=== PATIENT | female | born 1965 | race Caucasian/White ===

== ENCOUNTER → 2024-02-01 08:26 | Outpatient (REF) | payer BC, SELFPAY | LOC: WDC 08:26 | PROVIDERS: ATTENDING PHYSICIAN Obstetrics & Gynecology Gynecology; FAMILY PHYSICIAN Family Medicine | DX: Z12.31 Encounter for screening mammogram for malignant neoplasm of breast (principal) | CPT/HCPCS: 77063; 77067 ==

== ENCOUNTER → 2024-08-18 08:21 | Outpatient (REF) | payer BC, SELFPAY ==
[2024-08-18 09:18] LABS: % Basophils 0.9 % (0-2); % Eosinophils 1.8 % (0-6); % Immature Granulocytes 0.2 % (0-0.5); % Lymphocytes 32.5 % (20.5-51.1); % Monocytes 8.6 % (1.7-9.3); Absolute Eosinophils 0.1 10^3/uL (0-0.7); Absolute Lymphocytes 1.5 10^3/uL (1.2-3.4); Absolute Monocytes 0.4 10^3/uL (0.1-0.6); Absolute Neutrophils 2.6 10^3/uL (1.4-6.5); Hematocrit 39.7 % (37.0-47.0); Hemoglobin 13.4 g/dL (12.0-16.0); Mean Corp Hgb Conc. 33.8 g/dL (33.0-37.0); Mean Corpuscular Hgb 29.1 pg (27.0-31.0); Mean Corpuscular Volume 86.1 fL (81.0-99.0); Mean Platelet Volume 9.6 fL (7.4-10.4); Nucleated Red Blood Cells % 0 %; Platelet Count 269 10^3/uL (130-400); Red Blood Cell Count 4.61 10^6/uL (4.20-5.40); Red Cell Dist. Width 12.9 % (11.5-14.5); White Blood Cell Count 4.6 10^3/uL (4.8-10.8)
[2024-08-18 10:51] LABS: ALT (SGPT) 20 U/L (0-35); AST (SGOT) 25 U/L (14-36); Albumin 4.5 g/dl (3.5-5.0); Alkaline Phosphatase 56 U/L (38-126); Blood Urea Nitrogen 15 mg/dl (7-17); Calcium 9.4 mg/dl (8.4-10.2); Carbon Dioxide 26 mmol/L (22-30); Chloride 103 mmol/L (98-107); Glucose 89 mg/dl (70-99); HDL Cholesterol 99 mg/dl; LDL Cholesterol, Calculated 141 mg/dl; Potassium 4.3 mmol/L (3.5-5.1); Sodium 142 mmol/L (135-145); Total Bilirubin 0.7 mg/dl (0.2-1.3); Total Cholesterol 248 mg/dl (50-199); Total Protein 7.1 g/dl (6.3-8.2); Triglyceride 41 mg/dl (10-149); Very Low Density Lipoprotein 8 mg/dl (0-30); eGFR > 60.00
[2024-08-18 11:18] LABS: TSH 1.76 uIU/ml (0.47-4.68)
== END ==
LOC: REG 08:21
PROVIDERS: ATTENDING PHYSICIAN Family Medicine
DX: E78.2 Mixed hyperlipidemia (principal); Z00.00 Encounter for general adult medical examination without abnormal findings
CPT/HCPCS: 36415; 80053; 80061; 84443; 85025

== ENCOUNTER → 2025-02-06 08:53 | Outpatient (REF) | payer BC, SELFPAY | LOC: WDC 08:53 | PROVIDERS: ATTENDING PHYSICIAN Obstetrics & Gynecology Gynecology | DX: Z12.31 Encounter for screening mammogram for malignant neoplasm of breast (principal) | CPT/HCPCS: 77063; 77067 ==

== ENCOUNTER → 2025-07-28 09:11 | Outpatient (REF) | payer BC, SELFPAY ==
[2025-07-28 09:49] LABS: Hematocrit 41.2 % (37.0-47.0); Hemoglobin 13.7 g/dL (12.0-16.0); Mean Corp Hgb Conc. 33.3 g/dL (33.0-37.0); Mean Corpuscular Volume 88.0 fL (81.0-99.0); Nucleated Red Blood Cells % 0 %; Platelet Count 264 10^3/uL (130-400); Red Cell Dist. Width 12.5 % (11.5-14.5)
[2025-07-28 10:17] LABS: ALT (SGPT) 18 U/L (0-35); AST (SGOT) 21 U/L (14-36); Albumin 4.5 g/dl (3.5-5.0); Alkaline Phosphatase 50 U/L (38-126); Blood Urea Nitrogen 16 mg/dl (7-17); Calcium 9.8 mg/dl (8.4-10.2); Carbon Dioxide 30 mmol/L (22-30); Chloride 105 mmol/L (98-107); Glucose 94 mg/dl (70-99); Potassium 4.3 mmol/L (3.5-5.1); Sodium 139 mmol/L (135-145); Total Protein 7.2 g/dl (6.3-8.2); Very Low Density Lipoprotein 9 mg/dl (0-30); eGFR > 60.00
[2025-07-28 10:27] LABS: HDL Cholesterol 110 mg/dl; LDL Cholesterol, Calculated 136 mg/dl
[2025-07-28 10:45] LABS: TSH 1.44 uIU/ml (0.47-4.68)
[2025-07-28 14:20] LABS: Glycohemoglobin (HgbA1c) 5.3 % (4.0-5.6)
== END ==
LOC: REG 09:11
PROVIDERS: ATTENDING PHYSICIAN Physician Assistant Medical
DX: Z00.00 Encounter for general adult medical examination without abnormal findings (principal); E78.2 Mixed hyperlipidemia
CPT/HCPCS: 36415; 80053; 80061; 83036; 84443; 85025

== ENCOUNTER 2025-10-19 22:36 | Inpatient (IN) | payer BC, SELFPAY ==
[2025-10-19] VITALS (14 sets, daily range): BP systolic 90–121; BP diastolic 61–80; BMI 23.7
[2025-10-19 12:23] LABS: Hematocrit 37.1 % (37.0-47.0); Hemoglobin 12.6 g/dL (12.0-16.0); Mean Corp Hgb Conc. 34.0 g/dL (33.0-37.0); Mean Corpuscular Volume 86.9 fL (81.0-99.0); Nucleated Red Blood Cells % 0 %; Platelet Count 248 10^3/uL (130-400); Red Cell Dist. Width 12.5 % (11.5-14.5)
[2025-10-19 12:40] LABS: D-Dimer 1.66 ug/mlFEU (0.00-0.50)
[2025-10-19 12:42] LABS: ALT (SGPT) 14 U/L (0-35); AST (SGOT) 17 U/L (14-36); Albumin 4.1 g/dl (3.5-5.0); Alkaline Phosphatase 54 U/L (38-126); Blood Urea Nitrogen 20 mg/dl (7-17); Calcium 9.1 mg/dl (8.4-10.2); Carbon Dioxide 29 mmol/L (22-30); Chloride 103 mmol/L (98-107); Glucose 110 mg/dl (70-99); Potassium 3.9 mmol/L (3.5-5.1); Sodium 138 mmol/L (135-145); Total Protein 6.8 g/dl (6.3-8.2); eGFR > 60.00
[2025-10-19 12:51] LABS: Troponin I < 0.012 ng/ml
--- NOTE | 2025-10-19 14:50 | ED.GENMED ---
History of Present Illness
<Kapil Lopez PA-C - Last Filed: 10/20/25 22:57>
General
Chief Complaint: Breathing Problem
Time Seen by Provider: 10/19/25 13:09
History of Present Illness
History of Present Illness:
60-year-old female presents to the emergency department for evaluation of left-sided chest pain and shortness of breath began 3 days ago and worsening. Pain is pleuritic in nature but does not radiate. Denies any trauma to the area. States that
he was walking across the parking lot because of significant shortness of breath. No associated fever, chills, sweats, coughing, nausea, vomiting, or diarrhea. Does not take any exogenous hormones and denies any recent prolonged immobilization.
No recent illnesses
Past History
<Kapil Lopez PA-C - Last Filed: 10/20/25 22:57>
Past History
ED Past Medical History: Other (Migraines, previous craniotomy for benign*eye trauma in 1978. Recent bilateral knee replacements)
ED Past Surgical History: Other (History of brain tumor)
Social History
Tobacco: Non-smoker
Alcohol: None
Personal:
Living: with family
Employment: Employed
Family History
Family History: Negative Diabetes, Hypertension or CAD
Review of Systems
<Kapil Lopez PA-C - Last Filed: 10/20/25 22:57>
Review of Systems
Allergies reviewed?: Yes
All Other Systems: ROS reviewed and negative except as documented in HPI and ROS
Phy Exam
<Kapil Lopez PA-C - Last Filed: 10/20/25 22:57>
Physical Exam
Physical Exam:
GEN: Well appearing, NAD, WDWN
HEENT: Oral mucosa moist, no scleral icterus
Cardiac: Regular rate and rhythm, no murmur
Lung: No respiratory distress, no tachypnea lungs clear to auscultation
Chest: No tenderness elicited to location of reported pain, no palpable crepitus or deformity to the left chest wall
MSK: No gross deformity or injuries, no calf edema or tenderness to palpation
Skin: Good color, no pallor or jaundice, no rashes
Neuro: AO x3, moves all extremities freely
Psych: Calm, cooperative
Scores
<Kapil Lopez PA-C - Last Filed: 10/20/25 22:57>
Heart Failure Risk
Heart Failure Risk Score: Not Applicable
Course
<Kapil Lopez PA-C - Last Filed: 10/20/25 22:57>
Orders/Labs/Results
Orders:
Orders
10/19/25 Breakfast
Regular
At Your Request: Full Participation
Does patient need a safe tray?: No
10/19/25 11:55
Electrocardiogram (*1) Urgent
Reason for Study: Chest Pain
EKG- Treatment ONCE
10/19/25 12:10
Complete Blood Count/With Diff Urgent
Comprehensive Metabolic Panel Urgent
DDimer [D-Dimer] Urgent
NT-proBNP Urgent
Comment: ADD ON
Troponin I Urgent
10/19/25 13:16
CT Chest PE Study Urgent
Comment:
Reason For Exam: d dimer elevation/pleuritic pain
10/19/25 16:14
Add On- LAB Urgent
Tests Added?: bnp
10/19/25 16:18
COVID-19 Antigen Urgent
Source: Nasal Swab
Influenza A+B Rapid Molecular Urgent
LETITIA Source: Nasal Swab
Specimen Description:
10/19/25 16:44
Heparin 5,200 units IV NOW STA
10/19/25 16:45
Heparin 91211 Units/250 ml 25,000 units in 250 ml IV PER PROTOCOL
Weight to be used for heparin protocol in kilograms (kg):: 64.5
Protocol:: DVT/PE
PTT Goal Range to be used:: PTT 73 to 111 seconds
Order type:: Initial
INITIAL Infusion Dose (UNITS/KG/hr) & then follow protocol:: 18 units/kg/hr
Infusion Dose in UNITS/hr & then follow protocol (UNITS/hr):: 1,200
INFUSION RATE in mL/hr & then follow protocol (mL/hr):: 12
For DVT/PE algorithm, re-bolus for low PTT?: Yes
PTT less than or equal to 64 seconds:: Re-bolus 80 units/kg (max 10,000units). Increase by 300 units/hr
(+ 3mL/hr)
PTT 64.1 to 72.9 seconds:: Re-bolus 40 units/kg (max 5,000 units). Increase by 100 units/hr
(+ 1mL/hr)
PTT 73 to 111 seconds:: Target Range. No change in rate.
PTT 111.1 to 130.9 seconds:: Decrease rate by 100 units/hr (- 1 mL/hr)
PTT 131 to 199.9 seconds:: HOLD for 1 hr. Then decrease by 200 units/hr (- 2mL/hr)
PTT greater than or equal to 200 seconds:: HOLD for 2 hrs & Notify Provider. Then decrease by 300 units/hr
(- 3mL/hr)
Lab follow-up:: Each change, PTT q6h until 2 consecutive are therapeutic. Then
PTT daily.
10/19/25 16:52
US Periph Venous LOWER Ext Sp Urgent
Comment:
Reason For Exam: b/l PE
10/19/25 16:58
PTT Urgent
Comment: Obtain baseline before beginning heparin infusion if not already collected
10/19/25 17:26
Heparin 2,600 units IV PRN PRN
10/19/25 21:55
Admit/Transfer Patient As Directed
Co-Sign Provider:
Level of Care: Inpatient admission
Assign to:: Telemetry
Physician / Group: Htay
Diagnosis: Pulmonary Embolism
Reason for Telemetry: Arrhythmia
Date to Stop Telemetry: 10/22/25
Time to Stop Telemetry: 11:00
Reason for Hospitalization: heparin drip
Expected length of stay greater than two midnights?: Yes
ELOS- Estimated Length of Stay in days: 3
I certify the patient meets the requirements for IP care: Yes
10/19/25 21:56
PRN Pain Medication Management As Directed
May give lesser potent ordered pain med per pt: Yes
preference::
Protocol:: Medication orders for pain may be administered in a
manner that supports deferring to patient preference
when the pt is:
- Requesting an ordered lesser potent pain medication.
Least to most potent pain medications are defined
as: acetaminophen < NSAID < tramadol < opioids
(morphine, oxycodone, hydromorphone).
- Requesting a lesser dose of the same medication IF
ORDERED.
- Requesting a less intrusive route of administration
if both routes are prescribed by the provider (PO <
IV).
10/19/25 21:57
Code Status As Directed
Resuscitation Status: Full Code
10/19/25 22:00
Heparin 5,200 units IV PRN PRN
10/19/25 23:28
PTT Urgent
Comment: 6 hr heparin eval
10/19/25 23:37
Acetaminophen [Tylenol] 1,000 mg PO Q6HPRN PRN mild pain
10/19/25 23:37
Case Management Consult ONCE
Case Management Consult: Discharge Planning
Comment: Eliquis / Xarelto Pricing
Activity As Directed
Activity Level: Out of Bed-Early Mobility
With Assistance
Vital Signs As Directed
Frequency: Per unit guidelines
10/20/25 08:00
Pantoprazole [Protonix] 40 mg PO DAILY
10/21/25 07:29
Complete Blood Count/No Diff Q2D
Comment: notify provider: Platelet count < 130,000 or decrease by 50% from baseline
10/22/25 11:00
DC Protocol for Telemetry ONCE
Abnormal Lab Results
10/19/25
12:10
Absolute Monos (auto) 0.7 H 10^3/uL
(0.1-0.6)
Lymphocytes % 20.3 L %
(20.5-51.1)
D-Dimer 1.66 H ug/mlFEU
(0.00-0.50)
BUN 20 H mg/dl
(7-17)
Glucose 110 H mg/dl
(70-99)
10/19/25 12:10
10/19/25 12:10
Vital Signs
Initial and Last Documented VS:
Initial Vital Signs
Temp Pulse Resp BP Pulse Ox
36.9 C 88 20 114/69 99
10/19/25 11:51 10/19/25 11:51 10/19/25 11:51 10/19/25 11:51 10/19/25 11:51
Last Documented Vital Signs
Temp Pulse Resp BP Pulse Ox
36.6 C 73 18 122/94 96
10/22/25 03:00 10/22/25 03:00 10/22/25 03:00 10/22/25 03:00 10/21/25 23:38
<Maisha Crisostomo PA-C - Last Filed: 10/22/25 06:10>
Orders/Labs/Results
Orders:
Orders
10/19/25 Breakfast
Regular
At Your Request: Full Participation
Does patient need a safe tray?: No
10/19/25 11:55
Electrocardiogram (*1) Urgent
Reason for Study: Chest Pain
EKG- Treatment ONCE
10/19/25 12:10
Complete Blood Count/With Diff Urgent
Comprehensive Metabolic Panel Urgent
DDimer [D-Dimer] Urgent
NT-proBNP Urgent
Comment: ADD ON
Troponin I Urgent
10/19/25 13:16
CT Chest PE Study Urgent
Comment:
Reason For Exam: d dimer elevation/pleuritic pain
10/19/25 16:14
Add On- LAB Urgent
Tests Added?: bnp
10/19/25 16:18
COVID-19 Antigen Urgent
Source: Nasal Swab
Influenza A+B Rapid Molecular Urgent
LETITIA Source: Nasal Swab
Specimen Description:
10/19/25 16:44
Heparin 5,200 units IV NOW STA
10/19/25 16:45
Heparin 07466 Units/250 ml 25,000 units in 250 ml IV PER PROTOCOL
Weight to be used for heparin protocol in kilograms (kg):: 64.5
Protocol:: DVT/PE
PTT Goal Range to be used:: PTT 73 to 111 seconds
Order type:: Initial
INITIAL Infusion Dose (UNITS/KG/hr) & then follow protocol:: 18 units/kg/hr
Infusion Dose in UNITS/hr & then follow protocol (UNITS/hr):: 1,200
INFUSION RATE in mL/hr & then follow protocol (mL/hr):: 12
For DVT/PE algorithm, re-bolus for low PTT?: Yes
PTT less than or equal to 64 seconds:: Re-bolus 80 units/kg (max 10,000units). Increase by 300 units/hr
(+ 3mL/hr)
PTT 64.1 to 72.9 seconds:: Re-bolus 40 units/kg (max 5,000 units). Increase by 100 units/hr
(+ 1mL/hr)
PTT 73 to 111 seconds:: Target Range. No change in rate.
PTT 111.1 to 130.9 seconds:: Decrease rate by 100 units/hr (- 1 mL/hr)
PTT 131 to 199.9 seconds:: HOLD for 1 hr. Then decrease by 200 units/hr (- 2mL/hr)
PTT greater than or equal to 200 seconds:: HOLD for 2 hrs & Notify Provider. Then decrease by 300 units/hr
(- 3mL/hr)
Lab follow-up:: Each change, PTT q6h until 2 consecutive are therapeutic. Then
PTT daily.
10/19/25 16:52
US Periph Venous LOWER Ext Sp Urgent
Comment:
Reason For Exam: b/l PE
10/19/25 16:58
PTT Urgent
Comment: Obtain baseline before beginning heparin infusion if not already collected
10/19/25 17:26
Heparin 2,600 units IV PRN PRN
10/19/25 21:55
Admit/Transfer Patient As Directed
Co-Sign Provider:
Level of Care: Inpatient admission
Assign to:: Telemetry
Physician / Group: Htay
Diagnosis: Pulmonary Embolism
Reason for Telemetry: Arrhythmia
Date to Stop Telemetry: 10/22/25
Time to Stop Telemetry: 11:00
Reason for Hospitalization: heparin drip
Expected length of stay greater than two midnights?: Yes
ELOS- Estimated Length of Stay in days: 3
I certify the patient meets the requirements for IP care: Yes
10/19/25 21:56
PRN Pain Medication Management As Directed
May give lesser potent ordered pain med per pt: Yes
preference::
Protocol:: Medication orders for pain may be administered in a
manner that supports deferring to patient preference
when the pt is:
- Requesting an ordered lesser potent pain medication.
Least to most potent pain medications are defined
as: acetaminophen < NSAID < tramadol < opioids
(morphine, oxycodone, hydromorphone).
- Requesting a lesser dose of the same medication IF
ORDERED.
- Requesting a less intrusive route of administration
if both routes are prescribed by the provider (PO <
IV).
10/19/25 21:57
Code Status As Directed
Resuscitation Status: Full Code
10/19/25 22:00
Heparin 5,200 units IV PRN PRN
10/19/25 23:28
PTT Urgent
Comment: 6 hr heparin eval
10/19/25 23:37
Acetaminophen [Tylenol] 1,000 mg PO Q6HPRN PRN mild pain
10/19/25 23:37
Case Management Consult ONCE
Case Management Consult: Discharge Planning
Comment: Eliquis / Xarelto Pricing
Activity As Directed
Activity Level: Out of Bed-Early Mobility
With Assistance
Vital Signs As Directed
Frequency: Per unit guidelines
10/20/25 08:00
Pantoprazole [Protonix] 40 mg PO DAILY
10/21/25 07:29
Complete Blood Count/No Diff Q2D
Comment: notify provider: Platelet count < 130,000 or decrease by 50% from baseline
10/22/25 11:00
DC Protocol for Telemetry ONCE
Abnormal Lab Results
10/19/25
12:10
Absolute Monos (auto) 0.7 H 10^3/uL
(0.1-0.6)
Lymphocytes % 20.3 L %
(20.5-51.1)
D-Dimer 1.66 H ug/mlFEU
(0.00-0.50)
BUN 20 H mg/dl
(7-17)
Glucose 110 H mg/dl
(70-99)
10/19/25 12:10
10/19/25 12:10
Vital Signs
Initial and Last Documented VS:
Initial Vital Signs
Temp Pulse Resp BP Pulse Ox
36.9 C 88 20 114/69 99
10/19/25 11:51 10/19/25 11:51 10/19/25 11:51 10/19/25 11:51 10/19/25 11:51
Last Documented Vital Signs
Temp Pulse Resp BP Pulse Ox
36.6 C 73 18 122/94 96
10/22/25 03:00 10/22/25 03:00 10/22/25 03:00 10/22/25 03:00 10/21/25 23:38
<Altagracia Epstein, - Last Filed: 10/19/25 17:09>
Orders/Labs/Results
Orders:
Orders
10/19/25 Breakfast
Regular
At Your Request: Full Participation
Does patient need a safe tray?: No
10/19/25 11:55
Electrocardiogram (*1) Urgent
Reason for Study: Chest Pain
EKG- Treatment ONCE
10/19/25 12:10
Complete Blood Count/With Diff Urgent
Comprehensive Metabolic Panel Urgent
DDimer [D-Dimer] Urgent
NT-proBNP Urgent
Comment: ADD ON
Troponin I Urgent
10/19/25 13:16
CT Chest PE Study Urgent
Comment:
Reason For Exam: d dimer elevation/pleuritic pain
10/19/25 16:14
Add On- LAB Urgent
Tests Added?: bnp
10/19/25 16:18
COVID-19 Antigen Urgent
Source: Nasal Swab
Influenza A+B Rapid Molecular Urgent
LETITIA Source: Nasal Swab
Specimen Description:
10/19/25 16:44
Heparin 5,200 units IV NOW STA
10/19/25 16:45
Heparin 84602 Units/250 ml 25,000 units in 250 ml IV PER PROTOCOL
Weight to be used for heparin protocol in kilograms (kg):: 64.5
Protocol:: DVT/PE
PTT Goal Range to be used:: PTT 73 to 111 seconds
Order type:: Initial
INITIAL Infusion Dose (UNITS/KG/hr) & then follow protocol:: 18 units/kg/hr
Infusion Dose in UNITS/hr & then follow protocol (UNITS/hr):: 1,200
INFUSION RATE in mL/hr & then follow protocol (mL/hr):: 12
For DVT/PE algorithm, re-bolus for low PTT?: Yes
PTT less than or equal to 64 seconds:: Re-bolus 80 units/kg (max 10,000units). Increase by 300 units/hr
(+ 3mL/hr)
PTT 64.1 to 72.9 seconds:: Re-bolus 40 units/kg (max 5,000 units). Increase by 100 units/hr
(+ 1mL/hr)
PTT 73 to 111 seconds:: Target Range. No change in rate.
PTT 111.1 to 130.9 seconds:: Decrease rate by 100 units/hr (- 1 mL/hr)
PTT 131 to 199.9 seconds:: HOLD for 1 hr. Then decrease by 200 units/hr (- 2mL/hr)
PTT greater than or equal to 200 seconds:: HOLD for 2 hrs & Notify Provider. Then decrease by 300 units/hr
(- 3mL/hr)
Lab follow-up:: Each change, PTT q6h until 2 consecutive are therapeutic. Then
PTT daily.
10/19/25 16:52
US Periph Venous LOWER Ext Sp Urgent
Comment:
Reason For Exam: b/l PE
10/19/25 16:58
PTT Urgent
Comment: Obtain baseline before beginning heparin infusion if not already collected
10/19/25 17:26
Heparin 2,600 units IV PRN PRN
10/19/25 21:55
Admit/Transfer Patient As Directed
Co-Sign Provider:
Level of Care: Inpatient admission
Assign to:: Telemetry
Physician / Group: Htay
Diagnosis: Pulmonary Embolism
Reason for Telemetry: Arrhythmia
Date to Stop Telemetry: 10/22/25
Time to Stop Telemetry: 11:00
Reason for Hospitalization: heparin drip
Expected length of stay greater than two midnights?: Yes
ELOS- Estimated Length of Stay in days: 3
I certify the patient meets the requirements for IP care: Yes
10/19/25 21:56
PRN Pain Medication Management As Directed
May give lesser potent ordered pain med per pt: Yes
preference::
Protocol:: Medication orders for pain may be administered in a
manner that supports deferring to patient preference
when the pt is:
- Requesting an ordered lesser potent pain medication.
Least to most potent pain medications are defined
as: acetaminophen < NSAID < tramadol < opioids
(morphine, oxycodone, hydromorphone).
- Requesting a lesser dose of the same medication IF
ORDERED.
- Requesting a less intrusive route of administration
if both routes are prescribed by the provider (PO <
IV).
10/19/25 21:57
Code Status As Directed
Resuscitation Status: Full Code
10/19/25 22:00
Heparin 5,200 units IV PRN PRN
10/19/25 23:28
PTT Urgent
Comment: 6 hr heparin eval
10/19/25 23:37
Acetaminophen [Tylenol] 1,000 mg PO Q6HPRN PRN mild pain
10/19/25 23:37
Case Management Consult ONCE
Case Management Consult: Discharge Planning
Comment: Eliquis / Xarelto Pricing
Activity As Directed
Activity Level: Out of Bed-Early Mobility
With Assistance
Vital Signs As Directed
Frequency: Per unit guidelines
10/20/25 08:00
Pantoprazole [Protonix] 40 mg PO DAILY
10/21/25 07:29
Complete Blood Count/No Diff Q2D
Comment: notify provider: Platelet count < 130,000 or decrease by 50% from baseline
10/22/25 11:00
DC Protocol for Telemetry ONCE
Abnormal Lab Results
10/19/25
12:10
Absolute Monos (auto) 0.7 H 10^3/uL
(0.1-0.6)
Lymphocytes % 20.3 L %
(20.5-51.1)
D-Dimer 1.66 H ug/mlFEU
(0.00-0.50)
BUN 20 H mg/dl
(7-17)
Glucose 110 H mg/dl
(70-99)
10/19/25 12:10
10/19/25 12:10
Vital Signs
Initial and Last Documented VS:
Initial Vital Signs
Temp Pulse Resp BP Pulse Ox
36.9 C 88 20 114/69 99
10/19/25 11:51 10/19/25 11:51 10/19/25 11:51 10/19/25 11:51 10/19/25 11:51
Last Documented Vital Signs
Temp Pulse Resp BP Pulse Ox
36.6 C 73 18 122/94 96
10/22/25 03:00 10/22/25 03:00 10/22/25 03:00 10/22/25 03:00 10/21/25 23:38
<Kapil Lopez PA-C - Last Filed: 10/20/25 22:57>
MDM/Problems Addressed
MDM/Problems Addressed:
Given the pleuritic nature to the patient's pain labs were obtained evaluating for cardiac enzymes and a D-dimer. The D-dimer did return elevated thus the patient will receive a PE study for further clarity. Certainly consider PE versus pleural
effusion versus inflammatory pleuritis, no abdominal tenderness suggesting upper abdominal pathology. Will sign out to oncoming team pending imaging results
<Kapil Lopez PA-C - Last Filed: 10/20/25 22:57>
Comment
Comment:
EKG independently interpreted by me shows a normal sinus rhythm rate of [address] changes, normal QT interval
*Pulse Oximetry
SaO2: 97
Oxygen Mode of Delivery: Room air
Patient hypoxic: no
*Critical Care Note
Total Time (30-74mins, 75-104mins- exclusive of procedures): Not Applicable
<Maisha Crisostomo PA-C - Last Filed: 10/22/25 06:10>
Update Note
Update Note:
assumed care of patient at shift change pending CT pe study
which was positive for B/L PE, no saddle, no R heart strain
stable vitals
no o2 requirement
neg trop
PERT alert not called
admit for heparin drip
doppler legs.
ED Attending Note
<Kapil Lopez PA-C - Last Filed: 10/20/25 22:57>
-
Portions of this chart may have been created with voice recognition software.� Occasional wrong word or��sound alike� substitutions may have occurred due to the inherent limitations of voice recognition software.
<Altagracia Epstein DO - Last Filed: 10/19/25 17:09>
ED Attending Note
Patient seen and examined by attending physician: Yes
I performed the substantive portion of visit, reviewed & personally made and approve the management plan that is documented in note by myself or ROMULO.: Yes
I performed a history and physical exam of patient and discussed management with resident, I reviewed resident's note and agree with documented findings and plan of care.: Yes
ED Attending Note:
60-year-old female presents the ER for evaluation of severe left-sided chest pain and significant dyspnea on exertion over the past few days. Most recent travel was to [facility] in August. She denies any prior personal history of venous thromboembolic
disease. Vital signs reviewed, patient is awake, alert, appears in no acute distress, conjunctiva pink, mucous membranes moist, heart regular rate and rhythm that murmurs or ectopy, lungs are clear to auscultation although patient has severe pain
provoked with deep inspiration, GCS is 15. I discussed with patient and physician assistant track and field coach Kranthi CT results showing pulmonary emboli. Patient agrees with plan for admission. She is declining any need for analgesia at the current time. Patient
admitted to the hospitalist in stable condition for further treatment of acute PE
Discharge Plan
Departure
Patient Disposition: Admit
Date of Disposition: 10/19/25
Time of Disposition: 16:51
Admit to: Telemetry
Presentation/result/management discussed w/ accepting MD/DO: Hospitalist
Condition: Fair
Covid-19: Not Applicable
Discharge Problem:
Bilateral pulmonary embolism
Interventions
Interventions:
*Risk Screen - Suicide Last Done: 10/19/25 23:40
*General Assessment Last Done: 10/19/25 11:51
*Neglect/Abuse Screening Last Done: 10/19/25 11:51
*ED- Fall Risk Assessment Last Done: 10/19/25 13:13
*ED COVID-19 Vaccine History Last Done: 10/19/25 23:40
*ED Influenza Vaccine History Last Done: 10/19/25 13:13
*Nursing Disposition Last Done: 10/19/25 23:03
ED- Cardiac Assessment Last Done: 10/19/25 19:40
ED- Pulmonary Assessment Last Done: 10/19/25 19:40
Discharge Date and Time
Discharge Date/Time: 10/19/25 23:04
[2025-10-19 16:45] LABS: COVID-19 Antigen Negative (Negative)
[2025-10-19 17:18] LABS: APTT 28.7 Sec (23.4-35.0)
[2025-10-19] MEDS: HEPARIN 5200 UNITS IV (17:24)
[2025-10-19] MEDS: HEPARIN 25000 UNITS/250 ML IV (17:28)
--- NOTE | 2025-10-19 21:43 | W.PN.UPDATE ---
Update Note
Progress Note Update
This note serves as an addendum to the H&P by reimbursement manager Frederick LAY
HPI
60F RN Non smoker, Recent bilateral TKR, HX Brain tumor sen at ER:
- for evaluation of new onset of L CP n and worsening SoB for last 3 days
- Pain is pleuritic in nature but does not radiate.
- Recent travel to [place] ( total 7-8 hrs) with transit time 6-7 weeks ago
- Does not take any exogenous hormones
- No prior HX DVT/PE
- FHX: recently Dad had PE but provoked
Up to date with mammogram and colon cancer screening per patient
ROS
No associated fever, chills, sweats, coughing, nausea, vomiting, or diarrhea.
Relevant VS
Temp Pulse Resp BP Pulse Ox
98.4 F 85 21 115/69 95
10/19/25 11:51 10/19/25 18:30 10/19/25 18:30 10/19/25 18:00 10/19/25 18:30
PE
Gen: NAD
HEENT: supple
Neck: supple
Lungs: symmetric AE, no
Cor: RRR S1 S2
Abdomen:�soft NT NRT
JUNIOR DATA ANALYST: AAO3
MS:no asymmetric edema of Marlee
Psych: Nl mood and affect
Relevant data�
Abnormal Lab
10/19/25
12:10
Absolute Monos (auto) 0.7 H
Lymphocytes % 20.3 L
D-Dimer 1.66 H
BUN 20 H
Glucose 110 H
B/L Marlee US Marlee
- No evidence of right or left lower extremity deep venous thrombosis.
- Large right Phillips's cyst
CTC PE protocol
- The examination is positive for pulmonary embolism. Mild bilateral pulmonary embolism burden. No evidence of right ventricular heart strain.
- Pulmonary artery branching order level of the most proximal pulmonary embolism: Proximal lingular segment pulmonary artery.
- Trace bilateral pleural effusion, left greater than right.
- Mild bilateral lung base atelectasis, left greater than right.
ASSESSMENT & PLAN
Pending Rx reconciliation
Acute B/L PE with mild bilateral PE burden: provoked from recent 5-6 hrs flight vs unprovoked
- traveled to [place] - 5-6 hrs 6-7 weeks ago
- No evidence of RV strain
- agree with Heparin gtt
- CRM consult for cost analysis of Eliquis
- ECHO
- Eventual OP Hematology eval
DVT Px: Heparin gtt
Code: Full
IP TLM
--- NOTE | 2025-10-19 22:00 | HPS.HSE ---
Family Physician
-
Family Physician: Khanh Sanchez
Chief Complaint
-
Chest Pain and Shortness of Breath
History of Present Illness
Patient is a 60 y/o female past medical history of osteoarthritis who presents with chest pain and shortness of breath. Patient reports onset of symptoms about 3 days ago and have continued to worsen. She reports pain particularly on the left when
she tries to take a deep breath. She denies any lower extremity edema. Work-up in the emergency department revealed bilateral PEs. Patient reports trip to [facility] about 6-7 weeks ago. Patient denies smoking or hormone replacement therapy. She denies
prior history of DVT, but reports father recently had a pulmonary embolism related to prolonged car ride and sedentary lifestyle.
Medical History
Past Medical History
Past Medical History: Reports Other
Additional Past Medical History:
Osteoarthritis
Past Surgical History: Reports Other
Additional Past Surgical History:
Craniotomy for Benign Astrocytoma at age 14
Bilateral Knee Replacements
Bilateral Bunionectomy
Section
Social History
Tobacco: Non-smoker
Alcohol: Other (Very rare, once every few months)
Personal:
Living: With Family
Employment: Employed
Family History
Family History: Other (Father: Pulmonary Embolism)
Allergies / Home Medications
Allergies reflects when Allergies were last updated in [employer].
Home Medications with original date entered in [employer]
Allergy/Medication List:
Allergies
Allergy/AdvReac Type Severity Reaction Status Date / Time
latex Allergy Blisters, Verified 10/19/25 11:55
burning
Home Medications
acetaminophen 500 mg tablet (Acetaminophen Extra Strength) 1,000 mg PO Q6HPRN PRN mild pain 05/08/15
celecoxib 200 mg capsule (Celebrex) 200 mg PO DAILY mild pain 05/08/15
rizatriptan 10 mg tablet (Maxalt) 10 mg PO DAILYPRN PRN headaches 05/08/15
calcium carbonate (Tums) 200 mg PO BIDPRN PRN gerd 10/19/25
naproxen sodium 220 mg tablet (Aleve) 220 mg PO BIDPRN PRN mild pain 10/19/25
pantoprazole 40 mg tablet,delayed release (Protonix) 40 mg PO DAILY Gastrointestinal Issue 10/19/25
red yeast rice 600 mg capsule 600 mg PO DAILY Supplement 10/19/25
Review of Systems
-
A 12 point ROS was completed and negative except as noted: Yes
Constitutional: Denies Fever or Chills
Respiratory: Reports Trouble Breathing; Denies Cough
Cardiac: Reports Chest Pain
Physical Exam
Vital Signs
Vital Signs
Temp Pulse Resp BP Pulse Ox
98.4 F 85 21 115/69 95
10/19/25 11:51 10/19/25 18:30 10/19/25 18:30 10/19/25 18:00 10/19/25 18:30
Physical Exam
General: Comfortable and Conversant
HEENT: Anicteric and Moist mucous membranes
Respiratory: Clear and Non Labored Respirations
Cardiac: S1/S2 and Regular Rhythm
GI: Soft and Non Distended
Musculoskeletal: No Clubbing, No Cyanosis and No Edema
Skin: Warm and Dry
Neuro: Awake, Alert, Oriented and Nonfocal/grossly intact
Psych: Calm
Laboratory Results
-
10/19/25 12:10
10/19/25 12:10
Laboratory Results
APTT 28.7 Sec (23.4-35.0) 10/19/25 16:58
Total Bilirubin 0.3 mg/dl (0.2-1.3) 10/19/25 12:10
AST 17 U/L (14-36) 10/19/25 12:10
ALT 14 U/L (0-35) 10/19/25 12:10
Alkaline Phosphatase 54 U/L (38-126) 10/19/25 12:10
Troponin I < 0.012 ng/ml 10/19/25 12:10
Data Reviewed
-
CT Scan: Report Reviewed by me
Lab Data: Labs Reviewed by me
Impression/Plan
-
Bilateral Pulmonary Embolism, possibly provoked following air travel 6-7 weeks ago
-CT scan without evidence of right heart strain
-Continue heparin drip
-Check echocardiogram
-Consult Case Management for Eliquis/Xarelto pricing
-Consider hypercoagulable work-up as outpatient
Osteoarthritis
-Reviewed with patient she should stop NSAIDs while on anticoagulation
Code Status: Full Code
[2025-10-20 00:33] LABS: APTT 115.0 Sec (23.4-35.0)
--- NOTE | 2025-10-20 01:00 | PTCARENOTE ---
Patient admitted from ED to room 2127 with pulmonary embolism. History of osteoarthritis. AAOx3, [place], ambulatory. Mildly [place] in R ear. lungs clear on RA, reports dyspnea on exertion. NSR with monomorphic PVC's on telemetry. Positive pulses, no
edema. Oriented to room and call doran. Heparin drip infusing as ordered. Assessment and VS's documented in flowsheets. Continuing with plan of care.
[2025-10-20 03:04] VITALS: BP 95/51
[2025-10-20 07:19] VITALS: BP 95/65
[2025-10-20 07:23] LABS: APTT 64.7 Sec (23.4-35.0)
[2025-10-20] MEDS: HEPARIN 2600 UNITS IV (08:23)
[2025-10-20] MEDS: PROTONIX 40 MG PO (08:27)
[2025-10-20 11:20] VITALS: BP 119/67
--- NOTE | 2025-10-20 12:12 | CON.PUL ---
Consultation
Consultation Request
Date/Time Consultation Requested: 10/20/2025
Date/Time Consultation Performed: 10/20/2025
Medical History
-
Chief Complaint: Dyspnea
History of Present Illness:
Patient is a very pleasant 60-year-old female who presented to the hospital with chest pain and shortness of breath. Patient reports that in early August she had a trip to [place] which involved a flight both ways in addition she has had some road
trips to the mountains and back. Over the last few days she has reported some shortness of breath as well as pleuritic discomfort. In the emergency room CT chest was pursued which showed bilateral pulmonary embolism with low clot burden without
evidence of RV strain. Trace bilateral pleural effusion left greater than right were also noted. Mild bilateral lung base atelectasis left greater than right also noted. She was admitted to the hospitalist service and started on heparin infusion,
pulmonology consult was requested for further input.
Past Medical History
Past Medical History: Reports Other
Additional Past Medical History:
Osteoarthritis
Past Surgical History: Reports Other
Additional Past Surgical History:
Craniotomy for Benign Astrocytoma at age 14
Bilateral Knee Replacements
Bilateral Bunionectomy
Section
Social History
Tobacco: Non-smoker
Alcohol: Other (Very rare, once every few months)
Personal:
Living: With Family
Employment: Employed
Family History
Family History: Other (Father: Pulmonary Embolism
Allergies / Home Medications
Allergies
Allergy/AdvReac Type Severity Reaction Status Date / Time
latex Allergy Blisters, Verified 10/19/25 11:55
burning
Home Medications
�Medication �Instructions �Recorded �Confirmed �Last Taken �Type
acetaminophen 500 mg tablet 1,000 mg PO Q6HPRN PRN mild pain 05/08/15 10/19/25 10/18/25 History
(Acetaminophen Extra Strength)
celecoxib 200 mg capsule (Celebrex) 200 mg PO DAILY mild pain 05/08/15 10/19/2525 History
rizatriptan 10 mg tablet (Maxalt) 10 mg PO DAILYPRN PRN headaches 05/08/15 10/19/25 Unknown History
calcium carbonate (Tums) 200 mg PO BIDPRN PRN gerd 10/19/25 10/19/25 10/19/25 History
naproxen sodium 220 mg tablet 220 mg PO BIDPRN PRN mild pain 10/19/25 10/19/25 10/17/25 History
(Aleve)
pantoprazole 40 mg tablet,delayed 40 mg PO DAILY Gastrointestinal 10/19/25 10/19/25 10/18/25 History
release (Protonix) Issue
red yeast rice 600 mg capsule 600 mg PO DAILY Supplement 10/19/25 10/19/25 10/18/25 History
Review of Systems
-
Hematologic/Lymphatic: Other (All 14 systems reviewed and negative except as stated above in the history of present illness.)
Vitals / Labs / Diagnostic Testing
Vital Signs
Temp Pulse Resp BP Pulse Ox
98.2 F 93 16 119/67 96
10/20/25 11:20 10/20/25 11:20 10/20/25 11:20 10/20/25 11:20 10/20/25 11:20
Lab Data
10/19/25 12:10
10/19/25 12:10
Laboratory Results
10/19/25 10/20/25 10/20/25
16:58 00:00 06:41
APTT 28.7 115.0 H 64.7 H
10/20/25
19:00
APTT Cancelled
Microbiology
10/19/25 16:18 Nasal Swab Influenza Types A & B (YOMI) - Final
Negative for Influenza A & B, NAAT
Negative results must be combined with clinical observations
and patient history.
Nucleic Acid Amplification test (NAAT)performed on the
[employer] platform.
Diagnostic Testing:
Physical Exam
-
HEENT: Normocephalic
Cardiovascular: S1/S2
Respiratory: Clear
GI: Soft and Non Distended
Neurology: Awake and Alert
Skin: Warm
General: Comfortable
Assessment
-
#1. Acute PE
- Likely provoked in the setting of recent air-travel. Needs age appropriate cancer screening, can pursue as out patient
- Duration of anticoagulation, to be determined, based on work up. Patient's father also had episodes of VTE
- Low clot burden. No RV strain on imaging. Troponin and BNP unremarkable
- O2 as needed
- No respiratory distress, hemodynamically stable, saturating well on room air, not on any pressors
- On heparin, tolerating well, can switch to DOAC later tonight.
- Outpatient follow-up with hematology and pulmonology service
- Trace pleural effusions likely related to pulmonary embolism, BNP is unremarkable, pleuritic discomfort noted. Supportive care
Other medical diagnoses:
- Osteo-arthritis
Total time spent on this consultation/encounter __56__ minutes which includes review of history, physical exam, medications, laboratory data, personal review of imaging, extensive review of outpatient records, discussion with care team and
respiratory therapy.
Data:
Venous doppler 09/2025: No evidence of right or left lower extremity deep venous thrombosis.
Large right Phillips's cyst.
CT Chest 09/2025: The examination is positive for pulmonary embolism. Mild bilateral pulmonary embolism burden. No evidence of right ventricular heart strain.
Pulmonary artery branching order level of the most proximal pulmonary embolism: Proximal lingular segment pulmonary artery.
Trace bilateral pleural effusion, left greater than right.
Mild bilateral lung base atelectasis, left greater than right.
--- NOTE | 2025-10-20 12:49 | W.PN.HOSP.TC ---
Today's Communication/Plan
-
Anticoagulation
Pulm eval
Assessment / Plan
Assessment / Plan
Pleasant 60-year-old female with shortness of breath. Patient recently came back after a trip to [facility] 6 to 7 weeks ago. Patient states that her father had history of DVT and PE after traveling to [place]
CT of the chest-mild bilateral PE no RV strain. Pulmonary artery branching moderate level of the most proximal pulmonary embolism proximal lingular segment pulmonary artery trace bilateral pleural effusion. Mild bilateral lung base atelectasis
left greater than right
Venous Dopplers-no DVT. Large right Phillips's cyst
CVS: S1-S2 normal
Chest: CTA B/L
Abdomen: Soft, NT / Bowel sounds present
Extremities: No edema, no calf tenderness
# Bilateral PE
Likely provoked secondary to recent travel.
Up todate with age appropriate malignancy screening per pt ( Mammo,colonoscopy, Site Worker)
CT without RH strain.
Not Hypoxic
Check routine echo.
Pulmonary evaluation
Will change heparin drip to Lovenox if okay with pulmonary-unless thrombectomy planned. ( I doubt she needs)
Eventual Switching to NOACs.
OP heme eval discussed.
# Large right Phillips's cyst
# Migraines-continue rizatriptan
# History of craniotomy for right cerebellar astrocytoma in [id number] weakness with fine motor movements
# Chronic right sided hearing loss
# GERD-continue PPI
# Full code
D/W at bed side
Watch labs on Heparin gtt
Part of this note was created using voice recognition system. Occasional wrong word or��sound alike� substitutions may have inadvertently occurred due to the inherent limitations of voice recognition software. If noted kindly bring it to my
attention for correction.
Anticipated Discharge: 24 - 48 hours
Subjective/Interval History
-
Date of Service: October 20, 2025
Objective Data
-
Labs:
Laboratory Results
11/22/25 11/22/25 11/22/25
00:00 06:41 14:30
APTT 115.0 H 64.7 H Pending
10/20/25
19:00
APTT Cancelled
Vital Signs:
Vital Signs
Temp Pulse Resp BP Pulse Ox
98.2 F 93 16 119/67 96
10/20/25 11:20 10/20/25 11:20 10/20/25 11:20 10/20/25 11:20 10/20/25 11:20
I&O
10/19/25 10/20/25 10/21/25
06:59 06:59 06:59
Intake Total 120 / 120
Balance 120 / 120
[2025-10-20] MEDS: HEPARIN 25000 UNITS/250 ML IV (13:29)
[2025-10-20 15:35] VITALS: BP 94/66
--- NOTE | 2025-10-20 15:43 | CM ---
CM following re: discharge planning.
Reviewed pt's chart, met with pt. Pt's and children at bedside.
Pt is a 60 year old female, admitted with primary dx of Bilateral PE.
Pt reports she lives with and 2 sons 2SH, 2 steps to enter, has 3 supportive children. pt described herself as independent in all areas [employer], drives, was a RN at .
Both Jenna and Pablo carpio checked - $35.00 for 30 day supplies.
D/C plan: home with family, no needs. Family to transport.
[2025-10-20 15:56] LABS: APTT 106.2 Sec (23.4-35.0)
[2025-10-20 19:37] VITALS: BP 109/67
[2025-10-20] MEDS: LOVENOX 60 MG SC (19:56)
[2025-10-20 23:15] VITALS: BP 92/63
[2025-10-21 02:51] VITALS: BP 91/59
[2025-10-21 07:26] VITALS: BP 103/66
[2025-10-21 07:40] LABS: Hematocrit 40.3 % (37.0-47.0); Hemoglobin 13.3 g/dL (12.0-16.0); Mean Corp Hgb Conc. 33.0 g/dL (33.0-37.0); Mean Corpuscular Volume 91.0 fL (81.0-99.0); Platelet Count 286 10^3/uL (130-400); Red Cell Dist. Width 12.1 % (11.5-14.5)
[2025-10-21 07:58] LABS: Blood Urea Nitrogen 17 mg/dl (7-17); Calcium 9.5 mg/dl (8.4-10.2); Carbon Dioxide 32 mmol/L (22-30); Chloride 102 mmol/L (98-107); Estimated Creatinine Clearance 86 ml/min; Glucose 97 mg/dl (70-99); Potassium 4.1 mmol/L (3.5-5.1); Sodium 135 mmol/L (135-145); eGFR > 60.00
[2025-10-21] MEDS: LOVENOX 60 MG SC (08:45)
[2025-10-21] MEDS: PROTONIX 40 MG PO (08:45)
[2025-10-21] MEDS: TYLENOL 1000 MG PO ×2 (08:56→20:22)
--- NOTE | 2025-10-21 11:14 | W.PN.HOSP.TC ---
Today's Communication/Plan
-
Add magnesium level
Echo tomorrow
Change Lovenox to Eliquis
Assessment / Plan
Assessment / Plan
Pleasant 60-year-old female with shortness of breath. Patient recently came back after a trip to [facility] 6 to 7 weeks ago. Patient states that her father had history of DVT and PE after traveling to [place]
CT of the chest-mild bilateral PE no RV strain. Pulmonary artery branching moderate level of the most proximal pulmonary embolism proximal lingular segment pulmonary artery trace bilateral pleural effusion. Mild bilateral lung base atelectasis
left greater than right
Venous Dopplers-no DVT. Large right Phillips's cyst
CVS: S1-S2 normal, PVCs
Chest: CTA B/L
Abdomen: Soft, NT
Extremities: No edema
# Bilateral PE
Likely provoked secondary to recent travel.
Up todate with age appropriate malignancy screening per pt ( Mammo,colonoscopy, Packaging Technician)
CT without RH strain.
Not Hypoxic
Check routine echo.
Pulmonary evaluation appreciated.
Will change Lovenox to Eliquis
OP heme eval discussed.
# PVCs- on Tele review - Add mag level. Echo .
# Large right Phillips's cyst
# Migraines-continue rizatriptan
# History of craniotomy for right cerebellar astrocytoma in [id number] weakness with fine motor movements
# Chronic right sided hearing loss
# GERD-continue PPI
# Full code
D/W family at bed side
D/W Pulmonary
Part of this note was created using voice recognition system. Occasional wrong word or��sound alike� substitutions may have inadvertently occurred due to the inherent limitations of voice recognition software. If noted kindly bring it to my
attention for correction.
Anticipated Discharge: Within 24 hours
Subjective/Interval History
-
Date of Service: October 21, 2025
Objective Data
-
Labs:
Laboratory Results
10/21/25
07:29
WBC 4.5 L
Hgb 13.3
Hct 40.3
Plt Count 286
Sodium 135
Potassium 4.1
Chloride 102
Carbon Dioxide 32 H
BUN 17
Creatinine 0.6
Glucose 97
Calcium 9.5
Vital Signs:
Vital Signs
Temp Pulse Resp BP Pulse Ox
98.2 F 92 18 103/66 97
10/21/25 07:26 10/21/25 07:26 10/21/25 07:26 10/21/25 07:26 10/21/25 07:26
I&O
10/20/25 10/21/25 10/22/25
06:59 06:59 06:59
Intake Total 120 / 120 540 / 540
Balance 120 / 120 540 / 540
[2025-10-21 11:47] LABS: Magnesium 2.1 mg/dl (1.6-2.3)
--- NOTE | 2025-10-21 14:35 | W.PN.PUL3 ---
Today's Communication / Plan
-
- Transition to Eliis
- Follow-up chest x-ray and echo in a.m.
- Discharge planning
- Outpatient follow-up with [facility] pulmonary clinic
- Pulmonary team will sign off, please call as needed
Assessment
-
#1. Acute PE with pleuritic pain
- Likely provoked in the setting of recent air-travel. Needs age appropriate cancer screening, can pursue as out patient
- Duration of anticoagulation, to be determined, based on work up. Patient's father also had episodes of VTE
- Low clot burden. No RV strain on imaging. Troponin and BNP unremarkable
- O2 as needed
- No respiratory distress, hemodynamically stable, saturating well on room air, not on any pressors
- On Lovenox, tolerating well, can switch to DOAC later tonight.
- Outpatient follow-up with hematology and pulmonology service
- Trace pleural effusions likely related to pulmonary embolism, BNP is unremarkable, pleuritic discomfort noted. Supportive care. F/U CXR in AM.
Other medical diagnoses:
- Osteo-arthritis
Total time spent on this consultation/encounter __46__ minutes which includes review of history, physical exam, medications, laboratory data, personal review of imaging, extensive review of outpatient records, discussion with care team and
respiratory therapy.
Data:
Venous doppler 09/2025: No evidence of right or left lower extremity deep venous thrombosis.
Large right Phillips's cyst.
CT Chest 09/2025: The examination is positive for pulmonary embolism. Mild bilateral pulmonary embolism burden. No evidence of right ventricular heart strain.
Pulmonary artery branching order level of the most proximal pulmonary embolism: Proximal lingular segment pulmonary artery.
Trace bilateral pleural effusion, left greater than right.
Mild bilateral lung base atelectasis, left greater than right.
Subjective Data
-
Date of Service:
Date of Service: October 21, 2025
Subjective:
Comfortably sitting in bed in no acute distress.
Review of Systems
Genitourinary: Other (All 14 systems reviewed and negative except as stated above in the history of present illness. Gradually improving pleuritic pain)
Objective Data
Data Reviewed
Vital Signs / I&O / Oxygen:
Vital Signs
Temp Pulse Resp BP Pulse Ox
98.2 F 92 18 103/66 97
10/21/25 07:26 10/21/25 07:26 10/21/25 07:26 10/21/25 07:26 10/21/25 07:26
Intake and Output
10/20/25 10/21/25 10/22/25
06:59 06:59 06:59
Intake Total 120 / 120 540 / 540
Balance 120 / 120 540 / 540
SaO2 97
Physical Exam
General: Comfortable
HEENT: Normocephalic
Cardiovascular: S1-S2
Respiratory: Clear
GI: Soft and Non Distended
Neurology: Awake and Alert
Skin: Warm
Labs/Micro/Reports
Lab Data
10/21/25 07:29
10/21/25 07:29
Laboratory Results
10/20/25
15:29
APTT 106.2 H
Microbiology
10/19/25 16:18 Nasal Swab Influenza Types A & B (YOMI) - Final
Negative for Influenza A & B, NAAT
Negative results must be combined with clinical observations
and patient history.
Nucleic Acid Amplification test (NAAT)performed on the
[employer] platform.
[2025-10-21 15:28] VITALS: BP 117/64
[2025-10-21 19:08] VITALS: BP 111/72
[2025-10-21] MEDS: ELIQUIS 10 MG PO (20:22)
[2025-10-21] MEDS: VENTOLIN NEBULES 2.5 MG INH (22:35)
--- NOTE | 2025-10-21 22:58 | PTCARENOTE ---
Pt with a run of HR in the 140s. Pt had cough fit and feeling SOB & PEREZ. KAMLESH Siddiqui notified and aware. Pt placed on 2L nc and duo-neb ordered and administered. Chen at bedside. Educated pt on taking deep breaths, and not laying down given
condition. Answered all questions. Pt sitting up in bed. Sinus tach with frequent PVCs. Care ongoing.
[2025-10-21 23:38] VITALS: BP 82/67
[2025-10-21 23:55] VITALS: BP 82/63
[2025-10-22] MEDS: NSS 500 IV (00:25)
--- NOTE | 2025-10-22 00:25 | PTCARENOTE ---
At 2338 bp 82/67 pr 114. Rechecked at 2355 bp was 82/63 in left upper arm and 124/76 in right forearm. KAMLESH Siddiqui notified and aware. 50cc nss bolus ordered and administered at 0025. Care ongoing.
[2025-10-22 03:00] VITALS: BP 122/94
[2025-10-22 06:25] LABS: Hematocrit 37.4 % (37.0-47.0); Hemoglobin 12.5 g/dL (12.0-16.0); Mean Corp Hgb Conc. 33.4 g/dL (33.0-37.0); Mean Corpuscular Volume 89.7 fL (81.0-99.0); Platelet Count 284 10^3/uL (130-400); Red Cell Dist. Width 12.2 % (11.5-14.5)
[2025-10-22] MEDS: ELIQUIS 10 MG PO (07:20)
[2025-10-22] MEDS: PROTONIX 40 MG PO (07:20)
[2025-10-22 08:13] VITALS: BP 124/64
[2025-10-22] MEDS: TYLENOL 1000 MG PO (09:56)
[2025-10-22 11:00] VITALS: BP 96/67
--- NOTE | 2025-10-22 11:51 | W.PN.HOSP.TC ---
Today's Communication/Plan
-
DC home today
Assessment / Plan
Assessment / Plan
HPI: 60-year-old female p/w shortness of breath. Patient recently came back after a trip to [facility] 6 to 7 weeks ago. Patient states that her father had history of DVT and PE after traveling to [place].
CT of the chest-
mild bilateral PE no RV strain.
Pulmonary artery branching moderate level of the most proximal pulmonary embolism proximal lingular segment pulmonary artery trace bilateral pleural effusion. Mild bilateral lung base atelectasis left greater than right
Venous Dopplers-no DVT. Large right Phillips's cyst
A/P:
# Bilateral PE, no RV strain. Not Hypoxic
Likely provoked secondary to recent travel.
Pt is up to date with age appropriate malignancy screening per pt (Mammo, colonoscopy, Experimental Aircraft Mechanic)
Routine echo unrevealing:
1. Normal biventricular size and function without regional wall motion abnormalities.
2. LVEF is 65% by volumetric assessment. Normal diastolic function.
3. No significant valvular disease. Normal estimated PASP at 20 mmHg.
4. No prior study available for comparison.
Pulmonary on board
changed Lovenox to Eliquis
OP heme eval discussed.
# PVCs- on Tele
# Large right Phillips's cyst
# Migraines-continue rizatriptan
# History of craniotomy for right cerebellar astrocytoma in [id number] weakness with fine motor movements
# Chronic right sided hearing loss
# GERD-continue PPI
Full code
DW RN
Anticipated Discharge: Today
Subjective/Interval History
-
Date of Service: October 22, 2025
Objective Data
-
Labs:
Laboratory Results
10/22/25
05:58
WBC 5.0
Hgb 12.5
Hct 37.4
Plt Count 284
Vital Signs:
Vital Signs
Temp Pulse Resp BP Pulse Ox
37.6 C 88 16 96/67 96
10/22/25 11:00 10/22/25 11:00 10/22/25 11:00 10/22/25 11:00 10/22/25 11:00
I&O
10/21/25 10/22/25 10/23/25
06:59 06:59 06:59
Intake Total 540 / 540 1340 / 1340
Balance 540 / 540 1340 / 1340
Review of Systems
-
History Source: Patient
All other systems: Reviewed and negative
Physical Exam
-
General: Well Developed, Well Nourished, No Apparent Distress, Comfortable and Conversant; Negative Respiratory Distress
HEENT: Normocephalic, Atraumatic, Nose Appears Normal and Ears Appear Normal; Negative Oxygen
Respiratory: Clear to Auscultation and Non Labored Respirations; Negative Accessory Resp Muscle Use
Cardiac: Regular Rhythm and S1/S2
GI: Soft, Nontender, Nondistended and Normal Bowel Sounds
Skin: Warm and Dry
Neuro: Awake, Alert, Oriented, AO x 3 and Nonfocal/Grossly Intact
Psych: Calm and Intact Judgement/Insight
Data Reviewed
-
Diagnostic Radiology: Report Reviewed by me
CT Scan: Report Reviewed by me
Medical Tests (Nuc Med, Echo etc): Report Reviewed by me (echo) and Discussed with Patient
Labs: Labs Reviewed by me
[2025-10-22 12:00] VITALS: BP 107/64
--- NOTE | 2025-10-22 12:44 | CM ---
CM following re: discharge planning.
Reviewed pt's chart, met with pt.
Discharge order noted. Pt is aware, expressed her agreement and pt stated her will transport home.
Pt will have Eliquis medication as her new medication. Free 30 day Eliquis coupon trial with $10.00 co-pay card given to the pt.
No after care VN needs identified.
D/C plan: home no needs. Spouse to transport.
--- NOTE | 2025-10-22 12:55 | W.DCSUMMARY ---
Discharge Summary
Discharge Data
Date of Admission: 10/19/25
Date of Discharge: 10/22/25
Total time spent discharging patient (in min): 40
-
Pending Results: No
Hospital Course
Principal Diagnosis:
Bilateral PE, no RV strain. Not Hypoxic. Likely provoked secondary to recent travel
Chronic Diagnoses:�
PVCs on tele
Large right Phillips's cyst
Migraines- continue rizatriptan
History of craniotomy for right cerebellar astrocytoma in [id number] weakness with fine motor movements
Chronic right sided hearing loss
GERD- continue PPI
Consultations:�
Pulmonary
Procedures:�
None
Clinical course:�
This is a 60-year-old female, with past medical history as stated above, who presented with chest pain and shortness of breath. Patient recently returned from [facility] about 6-7 weeks prior to admission.
Problem 1:
Bilateral PE, no RV strain. Not Hypoxic. Likely provoked secondary to recent travel.
Patient denies to any use of hormone replacement therapy.
Her lower extremity ultrasound was negative for DVT.
Her routine echo obtained was also unrevealing, EF 65%, normal diastolic function, no significant valvular disease.
Patient has been informed to follow-up with hematology outpatient for hypercoagulable workup (she provided history that her father had VTE, although she felt this was likely attributed to his sedentary lifestyle).
The patient can continue with Eliquis, 10 mg twice daily for 7 days total, then 5 mg twice daily for at least 3 months; or otherwise recommended by the electrical design technician outpatient.
As for the rest of her medical problems, they were stable during her hospital stay.
Discharge Plan
-
Patient Disposition: Home (Routine Discharge)
Discharge Diagnosis/Procedures: Bilateral Pulmonary embolism, no RV strain, not Hypoxic (likely provoked secondary to recent travel).
Condition: Good
Diet: As tolerated
Activity: As tolerated
Driving Restrictions: As prior to admission
Activity Restrictions/Additional Instructions:
Follow up with electrical design technician outpatient for hypercoagulable work up
Referrals:
Crystal Rubin MD [Active, Pulmonary Medicine] - in six weeks
Khanh Sanchez MD [Family Provider, [facility]] - in less than 1 week
Additional Discharge Medication Instructions: Take Eliquis 10 mg twice daily for 5 more days, then 5 mg twice daily for 3 months
Prescriptions:
New
Eliquis 5 mg tablet
5 mg PO BID 90 Days Qty: 180 0RF
Continued
rizatriptan [Maxalt] 10 MG tablet
10 mg PO DAILYPRN PRN (Reason: headaches)
acetaminophen [Acetaminophen Extra Strength] 500 MG tablet
1,000 mg PO Q6HPRN PRN (Reason: mild pain)
pantoprazole [Protonix] 40 mg Tablet,Delayed Release (Dr/Ec)
40 mg PO DAILY
calcium carbonate [Tums] 200 mg calcium (500 mg) Tablet,Chewable
200 mg PO BIDPRN PRN (Reason: gerd)
red yeast rice 600 mg Capsule
600 mg PO DAILY
Held
celecoxib [Celebrex] 200 MG capsule
200 mg PO DAILY
Hold Instructions: Resume on 10/31/25. hold while on eliquis
naproxen sodium [Aleve] 220 mg Tablet
220 mg PO BIDPRN PRN (Reason: mild pain)
Hold Instructions: Resume on 10/31/25. hold while on Eliquis
Discharge Orders:
Discharge Patient (As Directed); Ordered 10/22/25
Ordered By: Nena Oquendo
Discharge Date and Time
Print Language: BENGALI
== END 2025-10-22 15:13 | disposition home or self-care (01) | DRG 176 ==
LOC: 2 NORTH 22:36
PROVIDERS: Hospitalist; Physician Assistant; Physician Assistant Medical; ADMITTING PHYSICIAN Internal Medicine; ATTENDING PHYSICIAN Internal Medicine; CONSULT PHYSICIAN Internal Medicine; EMERGENCY PHYSICIAN Student in an Organized Health Care Education/Training Program; FAMILY PHYSICIAN Family Medicine
DX: I26.99 Other pulmonary embolism without acute cor pulmonale (principal); J98.11 Atelectasis; I49.3 Ventricular premature depolarization; M71.21 Synovial cyst of popliteal space [Baker], right knee; G43.909 Migraine, unspecified, not intractable, without status migrainosus; Z85.841 Personal history of malignant neoplasm of brain; H91.91 Unspecified hearing loss, right ear; K21.9 Gastro-esophageal reflux disease without esophagitis; Z96.653 Presence of artificial knee joint, bilateral; Z79.1 Long term (current) use of non-steroidal anti-inflammatories (NSAID); Z11.52 Encounter for screening for COVID-19
CPT/HCPCS: 71045; 71275; 80048; 80053; 83735; 83880; 84484; 85025; 85027; 85379; 85730; 87502; 87811; 93005; 93306; 93970; 94640; 96365; 96366; 99285; Q9967

== ENCOUNTER → 2025-10-24 11:36 | Outpatient (REF) | payer BC, SELFPAY | LOC: CPAP 11:36 | PROVIDERS: ATTENDING PHYSICIAN Obstetrics & Gynecology Gynecology | DX: Z01.419 Encounter for gynecological examination (general) (routine) without abnormal findings (principal) | CPT/HCPCS: 87624 ==

== ENCOUNTER → 2025-11-06 11:08 | Outpatient (REF) | payer BC, SELFPAY | LOC: RCS 11:08 | PROVIDERS: ATTENDING PHYSICIAN Nurse Practitioner Gerontology; FAMILY PHYSICIAN Family Medicine | DX: R00.2 Palpitations (principal) | CPT/HCPCS: 93225; 93226 ==

== ENCOUNTER 2025-11-19 14:19 | Inpatient (IN) | payer BC, SELFPAY ==
[2025-11-19] VITALS (14 sets, daily range): BP systolic 102–131; BP diastolic 55–84; PULSE 79–95; BMI 25.1; BMI 24.2
--- NOTE | 2025-11-19 08:51 | ED.GENMED ---
History of Present Illness
General
Chief Complaint: Breathing Problem
Source: patient
Exam Limitations: none
Time Seen by Provider: 11/19/25 08:40
History of Present Illness
History of Present Illness:
Patient describing progressive shortness of breath especially with exertion since a diagnosis October 19 of bilateral pulmonary emboli. She is on Eliquis and faithful. She has some chest tightness with this. Shortness of breath does calm down at
rest but shortness of breath with exertion is significant with even minimal exertion. This is slowly been getting worse. She denies fever chills or cough.
Past History
Past History
ED Past Medical History: Other (Pulmonary emboli) and Other (Migraines, previous craniotomy for benign*eye trauma in 1978. Recent bilateral knee replacements)
ED Past Surgical History: Other (History of brain tumor)
Social History
Tobacco: Non-smoker
Alcohol: None
Personal:
Living: with family
Employment: Employed
Family History
Family History: Negative Diabetes, Hypertension or CAD
Review of Systems
Review of Systems
All Other Systems: Not applicable
Constitutional: Denies fever or chills
Phy Exam
Physical Exam
Physical Exam:
GENERAL: Alert and oriented in no apparent distress
EYE: Orbits normal.
NECK: Supple
CARDIAC: Regular rate and rhythm without any obvious murmurs.
LUNGS: Tachypnea. A few dry crackles in the left base. No decreased breath sounds no wheezing or rhonchi.
ABDOMEN: Soft, without focal tenderness or distention
NEUROLOGICAL: Alert and oriented , grossly non-focal
SKIN: Warm and dry, no rash or lesion, no discoloration, skin intact.
MUSCULOSKELETAL: No edema,no deformity.Good color
PSYCH: Normal and appropriate interaction.
Scores
Heart Failure Risk
Heart Failure Risk Score: Not Applicable
Sepsis
Sepsis Screening
Sepsis Assessment: Sepsis Ruled Out
Sepsis Screen
Sepsis Screen: Sepsis Ruled Out
Date: 11/19/25
Time: 14:32
Course
Orders/Labs/Results
Orders:
Orders
11/19/25 08:37
EKG [Electrocardiogram (*1)] Urgent
Reason for Study: Shortness of Breath
EKG- Treatment ONCE
11/19/25 08:50
Cardiac Monitoring- Treatment ONCE
IV Insert/Care/Rem.- Treatment PRN
CR Chest Portable - 1 View Urgent
Comment:
Reason For Exam: Short of breath
Reason Study Needs to be Portable: Patient Unstable
Pulse Ox/cont/shift [RESP] Stat
Quantity: 1
11/19/25 09:06
Basic Metabolic Panel Urgent
Complete Blood Count/With Diff Urgent
NT-proBNP Urgent
Troponin I Urgent
11/19/25 09:10
CT Chest PE Study Urgent
Comment:
Reason For Exam: Progressive shortness of breath. No PE diagnosis
11/19/25 Lunch
Regular
At Your Request: Full Participation
11/19/25 10:37
Echo Follow up Study W Dop Urgent
Reason for Study: short of breath
11/19/25 14:08
Admit/Transfer Patient As Directed
Co-Sign Provider:
Level of Care: Inpatient admission
Assign to:: IVU
Physician / Group: Breonna
Diagnosis: Acute Resp Failure
Reason for Hospitalization: Right/Left heart catheterization
Expected length of stay greater than two midnights?: Yes
ELOS- Estimated Length of Stay in days: 2
I certify the patient meets the requirements for IP care: Yes
11/19/25 14:09
PRN Pain Medication Management As Directed
May give lesser potent ordered pain med per pt: Yes
preference::
Protocol:: Medication orders for pain may be administered in a
manner that supports deferring to patient preference
when the pt is:
- Requesting an ordered lesser potent pain medication.
Least to most potent pain medications are defined
as: acetaminophen < NSAID < tramadol < opioids
(morphine, oxycodone, hydromorphone).
- Requesting a lesser dose of the same medication IF
ORDERED.
- Requesting a less intrusive route of administration
if both routes are prescribed by the provider (PO <
IV).
11/19/25 14:10
Code Status As Directed
Resuscitation Status: Full Code
11/20/25 Breakfast
NPO
Allow oral meds: Yes
Allow clear liquids: Sips of Clears
Abnormal Lab Results
11/19/25
09:06
WBC 4.6 L 10^3/uL
(4.8-10.8)
11/19/25 09:06
11/19/25 09:06
Vital Signs
Initial and Last Documented VS:
Initial Vital Signs
Temp Pulse Resp BP Pulse Ox
98.5 F 93 24 131/78 99
11/19/25 08:32 11/19/25 08:32 11/19/25 08:32 11/19/25 08:32 11/19/25 08:32
Last Documented Vital Signs
Temp Pulse Resp BP Pulse Ox
98 F 94 35 105/77 99
11/19/25 12:00 11/19/25 12:22 11/19/25 12:22 11/19/25 12:22 11/19/25 09:17
MDM/Problems Addressed
Differential Diagnosis Includes:
Patient with significant progressive shortness of breath with exertion. Considerations would be effusions/right heart strain/recurrent PEs/heart failure. Workup in progress
*Radiology
Radiology exam reviewed: preliminary read by ED provider (Slight vascular congestion) and radiology read reviewed (Slight vascular congestion. Normal PE study.)
*Pulse Oximetry
SaO2: 99
Oxygen Mode of Delivery: Room air
Patient hypoxic: no
*EKG
Interpreted by ED Provider?: Yes
Interpretation: abnormal
Comparison EKG: changes noted
Heart Rate: 82
Rate: normal
Rhythm: sinus and PVC's
[place]: normal axis
Interval: normal interval
QRS Pattern: normal QRS
Ischemia: no ischemia
*Critical Care Note
Total Time (30-74mins, 75-104mins- exclusive of procedures): Not Applicable
Data Reviewed
Review of Other/Old Records Reveals: Labs, Records, Radiology Studies, Testing and Discharge Summary
Update Note
Update Note:
Patient describing significant dyspnea on exertion. Etiology unclear at this time. ER workup unremarkable. No recurrent PE. No heart failure. Cardiac testing within normal limits. Cardiology will evaluate. Echocardiogram pending. Warrants or
inpatient further workup
ED Attending Note
-
Portions of this chart may have been created with voice recognition software.� Occasional wrong word or��sound alike� substitutions may have occurred due to the inherent limitations of voice recognition software.
Discharge Plan
Departure
Patient Disposition: Admit
Date of Disposition: 11/19/25
Time of Disposition: 11:18
Presentation/result/management discussed w/ accepting MD/DO: Cardiology/pulmonary
Discharge Problem:
Significant dyspnea on exertion, Recent pulmonary emboli
Interventions
Interventions:
*Neglect/Abuse Screening Last Done: 11/19/25 08:32
*ED COVID-19 Vaccine History Last Done: 11/19/25 08:32
*ED Influenza Vaccine History Last Done: 11/19/25 08:32
[facility] Risk Assessment Tool Last Done: 11/19/25 09:00
*Risk Screen - Suicide (C-SSRS) Last Done: 11/19/25 08:32
ED- Cardiac Assessment Last Done: 11/19/25 09:17
ED- Pulmonary Assessment Last Done: 11/19/25 09:17
[2025-11-19 09:31] LABS: Hematocrit 40.1 % (37.0-47.0); Hemoglobin 13.7 g/dL (12.0-16.0); Mean Corp Hgb Conc. 34.2 g/dL (33.0-37.0); Mean Corpuscular Volume 85.7 fL (81.0-99.0); Nucleated Red Blood Cells % 0 %; Platelet Count 263 10^3/uL (130-400); Red Cell Dist. Width 12.4 % (11.5-14.5)
[2025-11-19 09:41] LABS: Blood Urea Nitrogen 16 mg/dl (7-17); Calcium 9.9 mg/dl (8.4-10.2); Carbon Dioxide 26 mmol/L (22-30); Chloride 103 mmol/L (98-107); Estimated Creatinine Clearance 74 ml/min; Glucose 82 mg/dl (70-99); Potassium 3.5 mmol/L (3.5-5.1); Sodium 136 mmol/L (135-145); eGFR > 60.00
[2025-11-19 09:52] LABS: Troponin I < 0.012 ng/ml
--- NOTE | 2025-11-19 10:51 | CON.CAR ---
Addendum entered and electronically signed by Avelino Balderrama MD 11/19/25 14:12:
I reviewed and agree with the note by KAMLESH and it accurately reflects our care.
I saw and evaluated the patient, and I provided the substantive portion of the medical decision making. My assessment and plan is below:
60-year-old female with recent pulmonary embolism (10/19/2025), PVCs, and hyperlipidemia who presents with shortness of breath. Since her diagnosis of PE, she feels that she has been getting worse. She is only able to exert herself very minimally
before she has to stop due to dyspnea.
Physical exam: RRR, no murmurs, clear lungs, no lower extremity edema
CT PE this admission with no new PEs and no focal parenchymal consolidation
Labs with undetectable troponin
TTE 11/19/2025: LVEF 75%, no VHD, normal PASP
ECG: Sinus with PVC, no evidence of ischemia
Dyspnea on exertion: She remains profoundly short of breath despite resolving PEs on CT. Echo with normal LVEF. We may be underestimating her PASP due to incomplete TR envelope, or she could have undiagnosed CAD. We will do RHC/LHC tomorrow.
Please keep NPOpMN.
Original Note:
Consultation
Consultation Request
Date/Time Consultation Requested: 11/19/2025 10:30
Date/Time Consultation Performed: 11/19/2025 10:50
Requesting Provider: Dr. Barbosa
Performing Provider: KAMLESH Romero for Dr. Balderrama
Reason for Consultation: Shortness of breath
Medical History
-
Chief Complaint: Shortness of breath
History of Present Illness:
Valerie Chaudhari is a 60-year-old female (known to Dr. Balderrama, her primary cell reliner), with bilateral pulmonary embolism (10/19/2025), PVCs, hypercholesterolemia, and migraines presented to the emergency department chief complaint of shortness of
breath. Her shortness of breath has been worsening since her diagnosis of pulmonary embolism. It is requiring less effort and less activity for her shortness of breath to become severe. Yesterday she had episodes of presyncope in addition to
profound shortness of breath requiring her to take multiple rest breaks throughout the day. At the time of this consultation she is lying in a stretcher and is not short of breath at rest.
Past Medical History
Past Medical History: Hypercholesterolemia and Other (PE [09/2025], migraines)
Past Surgical History: Brain (Craniotomy for astrocytoma [1978]), and Orthopedic
Social History
Tobacco: Non-Smoker
Alcohol: None
Drug: None
Personal:
Living: With Family
Employment: Employed (Registered nurse)
Family History
Family History: Other (Her father also had PEs.)
Allergies / Home Medications
Allergy/AdvReac Type Severity Reaction Status Date / Time
latex Allergy Blisters, Verified 11/19/25 08:35
burning
�Medication �Instructions �Recorded �Confirmed �Type
acetaminophen 500 mg tablet 1,000 mg PO Q6HPRN PRN mild pain 05/08/15 10/19/25 History
(Acetaminophen Extra Strength)
celecoxib 200 mg capsule (Celebrex) 200 mg PO DAILY mild pain 05/08/15 10/19/25 History
Held on 10/22/25.
Instructions: Resume on
10/31/25. hold while on
eliquis
rizatriptan 10 mg tablet (Maxalt) 10 mg PO DAILYPRN PRN headaches 05/08/15 10/19/25 History
calcium carbonate (Tums) 200 mg PO BIDPRN PRN gerd 10/19/25 10/19/25 History
naproxen sodium 220 mg tablet 220 mg PO BIDPRN PRN mild pain 10/19/25 10/19/25 History
(Aleve)
Held on 10/22/25.
Instructions: Resume on
10/31/25. hold while on
Eliquis
pantoprazole 40 mg tablet,delayed 40 mg PO DAILY Gastrointestinal 10/19/25 10/19/25 History
release (Protonix) Issue
red yeast rice 600 mg capsule 600 mg PO DAILY Supplement 10/19/25 10/19/25 History
apixaban 5 mg tablet (Eliquis) 5 mg PO BID 3 months #180 tabs 10/22/25 Rx
Review of Systems
-
History Source: Patient
All other systems: Negative unless noted
Constitutional: Fatigue
EENT: No Symptoms
Respiratory: Trouble Breathing
Cardiac: Palpitations
Abdomen/GI: No Symptoms
: No Symptoms
Musculoskeletal: No Symptoms
Skin: No Symptoms
Neurological: No Symptoms
Endocrine: No Symptoms
Hematologic/Lymphatic: No Symptoms
Physical Exam
Vital Signs
Temp Pulse Resp BP Pulse Ox
98.5 F 80 17 127/84 99
11/19/25 08:32 11/19/25 10:08 11/19/25 10:08 11/19/25 09:12 11/19/25 09:17
Lab Results
11/19/25 09:06
11/19/25 09:06
Troponin I < 0.012 ng/ml 11/19/25 09:06
Eia-O-Yogiplywgdr Pept 25.0 pg/ml 11/19/25 09:06
Physical Exam
General: Well Developed, Well Nourished and No Apparent Distress
HEENT: Normocephalic, Anicteric and Moist Mucous Membranes
Respiratory: Clear and Non Labored Respirations
Cardiac: S1/S2 and Regular Rhythm
Breast: Deferred by me
GI: Soft, Non Tender, Non Distended and Normal Bowel Sounds
Rectal: Deferred by Provider
Genito-urinary: No Costovertebral Tender
Musculoskeletal: No Clubbing, No Cyanosis and No Edema
Skin: Warm and Dry
Neuro: AO x 3
Hematologic/Lymphatic: No Lymphadenopathy
Psych: Calm
Impression / Plan
-
I/P: 60F with bilateral pulmonary embolism (10/19/2025), PVCs, hypercholesterolemia, and migraines presented to the emergency department chief complaint of shortness of breath
Primary cell reliner: Dr. Balderrama
Shortness of breath
- Worsening, with profound PEREZ without hypoxia
- Unlikely HF with current CXR and proBNP of 25
- No evidence for PNA
- EKG appears nonischemic and troponin <0.012
- PEs have resolved on CT
- Echocardiogram
Pulmonary embolism (10/18/2025)
- Resolved based on CT today
- No right heart strain during PE presentation
PVCs, symptomatic
- She declined metoprolol in the outpatient setting due to her borderline low BP
- Follow telemetry
Hypercholesterolemia, ASCVD risk 1.2%, no need for lipid-lowering therapy
Astrocytoma s/p craniotomy 1978
Data Reviewed
-
EKG: Report Reviewed by me
Radiology: Report Reviewed by me
Medical Tests (Nuc Med, Echo etc): Report Reviewed by me
Old Records: Reviewed
--- NOTE | 2025-11-19 14:12 | HPS.HSE ---
Family Physician
-
Family Physician: Khanh Sanchez
Chief Complaint
-
Dyspnea on exertion, cough
History of Present Illness
60-year-old female here complaining of progressive dyspnea on exertion and dry cough for the past few months.
Recently hospitalized October 19 and discharged October 22 for bilateral pulmonary embolism. Unknown provoking factor. Discharged on Eliquis.
Denies fevers or chills. Does have some chest tightness. Dyspnea is much worse on exertion. States she has been compliant with her Eliquis.
Medical History
Past Medical History
Past Medical History: Reports Other
Additional Past Medical History:
Bilateral pulmonary
GERD
Migraines
Right cerebellar astrocytoma, resected 1978
Past Surgical History: Reports Other
Additional Past Surgical History:
Astrocytoma resection
Bilateral knee replacements
Bilateral bunionectomy
Social History
Tobacco: Non-smoker
Alcohol: None
Drug: None
Personal:
Living: With Family
Employment: Employed
Family History
Family History: Not pertinent
Allergies / Home Medications
Allergies reflects when Allergies were last updated in [employer] [facility] [employer].
Home Medications with original date entered in [employer]
Allergy/Medication List:
Allergies
Allergy/AdvReac Type Severity Reaction Status Date / Time
latex Allergy Blisters, Verified 11/19/25 08:35
burning
Home Medications
rizatriptan 10 mg tablet (Maxalt) 10 mg PO DAILYPRN PRN headaches 05/08/15
pantoprazole 40 mg tablet,delayed release (Protonix) 40 mg PO DAILY Gastrointestinal Issue 10/19/25
apixaban 5 mg tablet (Eliquis) 5 mg PO BID Blood Clot Prevention/Tx 11/19/25
Review of Systems
-
History Source: Patient
A 12 point ROS was completed and negative except as noted: Yes
Physical Exam
Vital Signs
Vital Signs
Temp Pulse Resp BP Pulse Ox
98 F 94 35 105/77 99
11/19/25 12:00 11/19/25 12:22 11/19/25 12:22 11/19/25 12:22 11/19/25 09:17
Physical Exam
General: Well Developed, Well Nourished, No Apparent Distress and Comfortable
HEENT: NormoCephalic, Anicteric and Moist mucous membranes
Respiratory: Clear
Cardiac: S1/S2 and Regular Rhythm
Breast: Deferred by me
GI: Soft, Non Tender and Non Distended
Genito-urinary: Deferred by me
Musculoskeletal: No Clubbing, No Cyanosis and No Edema
Skin: Warm and Dry
Neuro: AO x 3
Hematologic/Lymphatic: No Lymphadenopathy
Psych: Calm
Laboratory Results
-
11/19/25 09:06
11/19/25 09:06
Laboratory Results
Troponin I < 0.012 ng/ml 11/19/25 09:06
Impression/Plan
-
Acute respiratory failure -unclear etiology. Repeat CT chest shows resolution of previously noted bilateral pulmonary emboli.
Ambulatory pulse ox on room air normal. Not orthostatic.
Echocardiogram today shows normal biventricular size and systolic function without regional wall motion abnormality, LVEF 75%. No significant valvular abnormalities. Normal PA systolic pressure.
Spoke with cardiology service, awaiting right and left heart catheterization tomorrow.
Recent pulmonary emboli -continue Eliquis.
Frequent PVCs -recent Holter monitor exam noted. She declined metoprolol in the outpatient setting due to hypotension.
Hyperlipidemia -no indication for statin therapy due to low risk.
Full code
--- NOTE | 2025-11-19 16:10 | PTCARENOTE ---
Rec'd report from Rebekah in the ER; Rec'd pt AAOX3 w/no c/o CP, but pt visibly dyspneic on exertion. Pt w/VSS w/HR in the 80's at rest to the low 110's w/activity. Pt is SR/ST w/occas PVC's on telemetry monitoring. Pt settled into rm & plan of care
discussed. Pt w/call doran within reach & paln of care ongoing.
--- NOTE | 2025-11-19 16:49 | CM ---
spoke to pt in room, she is prev indep. lives with her husb and son in a 2 story home with 2 steps to enter. she denies any dc planning needs at this time. no dme's noted. plan is for R/L cardiac cath in am. dc plan is home with husb when medically
stable.
[2025-11-19] MEDS: ELIQUIS 5 MG PO (19:47)
--- NOTE | 2025-11-19 21:25 | PTCARENOTE ---
Received patient at change of shift. SR with PVCs on the monitor, HR in the 70s. Dyspneic on exertion, 98% on room air. NPO at midnight. No complaints from pt at this time, call doran within reach.
[2025-11-20] VITALS (10 sets, daily range): BP systolic 85–108; BP diastolic 41–79; BMI 24.1
[2025-11-20] MEDS: ELIQUIS PO (08:08)
[2025-11-20] MEDS: PROTONIX 40 MG PO (08:15)
--- NOTE | 2025-11-20 10:03 | ITS.CL.PN ---
[employer] [facility] - Procedure Note
Procedure
Procedure Note:
CARDIAC CATHETERIZATION REPORT
Date of Procedure: 11/20/2025
Referring: Dr. Lety Balderrama MD
Indication: shortness of breath, recent PE
PROCEDURE(S)
1. right heart catheterization
2. left heart catheterization
3. coronary angiography
ACCESS
1. 6F right radial artery (closure: radial band)
2. 5F right antecubital vein (closure: manual hemostasis)
CATHETERS
1. 5F [facility]
2. 6F JR4
3. 6F JL3.5
MODERATE SEDATION: 25 minutes of moderate sedation was utilized. An independent medical pathology teacher was present to assist with and help manage the patient's level of consciousness and physiologic status.
HEMODYNAMIC DATA
LV 102/5 (EDP 9) mmHg
AO 90/61 (mean 75) mmHg
RA 3 mmHg
RV 17/2 (EDP 4) mmHg
PA 16/2 (mean 10) mmHg
PCWP 4 mmHg
SaO2 91.5%
SvO2 71.0%
RA Sat 69.5%
Hb 13.6 g/dL
CO/CI 6.62/3.93 L/min/m2
SVR 870 dsc*-5
PVR 0.9 Wood units
CORONARY ANGIOGRAPHY
Dominance: right
LM: short, normal
LAD: large vessel giving rise to a moderate caliber diagonal branch and wrapping around the apex. There is no coronary artery disease.
LCx: large vessel giving rise to a small high rising OM1/ramus, a large OM2, and small LPL. There is no coronary artery disease.
RCA: moderate caliber vessel giving rise to a small RPDA and two small RPL branches. There is no coronary artery disease.
RADIATION: dose 113 mGy; DAP 6.5 Gy*cm2; fluoroscopy time 2.7 min
CONCLUSIONS
1. Normal biventricular filling pressures, normal pulmonary artery pressure, and high-normal cardiac output.
2. No aortic stenosis on hemodynamic pullback.
2. No coronary artery disease in a right dominant system.
RECOMMENDATIONS
1. Outpatient pulmonary consultation for etiology of ongoing shortness of breath.
2. Primary prevention of coronary artery disease.
Copy to: Dr. Lety Balderrama MD (piano professor); Dr. Khanh Sanchez MD (PCP)
Signed: Osbaldo Wilson MD, PhD
--- NOTE | 2025-11-20 10:20 | PTCARENOTE ---
Rec'd Pt s/p card cath, A,A+O, denies pain. L ulner site with R band D+I, + radial and ulnar pulse. R brachial dsg D+I. R arm elevated on pillow
--- NOTE | 2025-11-20 10:20 | W.PN.CD ---
Today's Communication / Plan
-
normal RHC/LHC
stable for discharge 2 hours post TR band removal with outpatient pulm follow up
Impression / Plan
-
I/P: 60F with bilateral pulmonary embolism (10/19/2025), PVCs, hypercholesterolemia, and migraines presented to the emergency department chief complaint of shortness of breath
Primary skilled helper: Dr. Balderrama
Shortness of breath
- Worsening, with profound PEREZ without hypoxia
- Unlikely HF with current CXR and proBNP of 25
- No evidence for PNA
- EKG appears nonischemic and troponin <0.012
- PEs have resolved on CT
- TTE unremarkable
- RHC/LHC today was unremarkable with normal filling pressures, normal cardiac output, and no CAD
- will arrange for outpatient follow up with pulmonary to further workup post-PE syndrome
Pulmonary embolism (10/18/2025)
- Resolved based on CT today
- No right heart strain during PE presentation
PVCs, symptomatic
- She declined metoprolol in the outpatient setting due to her borderline low BP
- Minimal PVC burden on tele
Hypercholesterolemia, ASCVD risk 1.2%, no CAD on cath, no need for lipid-lowering therapy
Astrocytoma s/p craniotomy 1978
Physical Exam
Vital Signs/Labs
Vital Signs
Temp Pulse Resp BP Pulse Ox
36.6 C 117 18 99/53 98
11/20/25 07:57 11/20/25 06:00 11/20/25 07:57 11/20/25 05:17 11/20/25 07:57
11/19/25 11/20/25 11/21/25
06:59 06:59 06:59
Actual Weight 64 kg 63.6 kg
11/19/25 09:06
11/19/25 09:06
11/19/25
09:06
Bdo-N-Gqtptzrgznn Pept 25.0
LAB Results
11/19/25
09:06
Troponin I < 0.012
Physical Exam
Constitutional: Comfortable
Cardiovascular: Rhythm & rate is regular
Respiratory: Respiratory effort normal
Neuro/Psych: AO x 3
Data Reviewed
-
Date of Service: November 20, 2025
Medical Decision Making: Reviewed Test Results
EKG: Tracing Personally Visualized and interpreted
Echo: Tracing Personally Visualized and interpreted
X-Ray/CT/US/MRI/NUC/PET: Image Personally Visualized and interpreted
Labs: Labs Reviewed by me
--- NOTE | 2025-11-20 12:05 | W.DS.TRANS ---
DC Summary - Cigar [employer]
-
Discharge Instructions:
Discharge Diagnosis/Procedures Cardiac catheterization, dyspnea
Diet Regular
Activity As tolerated
Driving Restrictions As prior to admission
Bathing Restrictions None
Instructions:
Stand-Alone Forms: DC Instructions- Cath/EP Lab
Changes to Home Medications: No
Discharge Medications:
DC Medications w/original date entered in [place]
rizatriptan 10 mg tablet (Maxalt) 10 mg PO DAILYPRN PRN headaches 05/08/15
pantoprazole 40 mg tablet,delayed release (Protonix) 40 mg PO DAILY Gastrointestinal Issue 10/19/25
apixaban 5 mg tablet (Eliquis) 5 mg PO BID Blood Clot Prevention/Tx 11/19/25
Home Medication Changes
Pending Results: No
--- NOTE | 2025-11-20 12:18 | PTCARENOTE ---
1050 Small hematoma noted proximal to R-band. Manual pressure held x 5-10 minutes. hematoma pressed out. Halima Fernandez notified and came to see Pt. Site now soft and has remained soft.
--- NOTE | 2025-11-20 12:39 | W.PN.HOSP.TC ---
Today's Communication/Plan
-
Discharge
Assessment / Plan
Assessment / Plan
Gen-AAOx3, NAD
HEENT-NC, AT, anicteric, clear oral mm
Neck-supple
CV-reg, no M, +S1/S2
Lungs-clear B/L
Abd-soft, NT, ND
Ext-no edema
Musculoskeletal-no cyanosis, clubbing
Skin-warm and dry
Neuro-grossly non-focal
Psych-calm, cooperative
Acute respiratory failure -unclear etiology. Repeat CT chest shows resolution of previously noted bilateral pulmonary emboli.
Ambulatory pulse ox on room air normal. Not orthostatic.
Echocardiogram shows normal biventricular size and systolic function without regional wall motion abnormality, LVEF 75%. No significant valvular abnormalities. Normal PA systolic pressure.
Normal right and left heart catheterization. Recommend outpatient follow-up with pulmonary.
Recent pulmonary emboli -continue Eliquis.
Frequent PVCs -recent Holter monitor exam noted. She declined metoprolol in the outpatient setting due to hypotension.
Hyperlipidemia -no indication for statin therapy due to low risk.
Full code
Dispo -stable for discharge today. Discussed with cardiology. Outpatient follow-up.
Anticipated Discharge: Today
Subjective/Interval History
-
Date of Service: November 20, 2025
Patient seen and examined. Still with dyspnea on exertion. No new complaints.
Objective Data
-
Vital Signs:
Vital Signs
Temp Pulse Resp BP Pulse Ox
97.9 F 82 18 99/53 97
11/20/25 11:08 11/20/25 11:08 11/20/25 11:08 11/20/25 05:17 11/20/25 11:08
I&O
11/19/25 11/20/25 11/21/25
06:59 06:59 06:59
Intake Total 480 / 480
Balance 480 / 480
Review of Systems
-
History Source: Patient
All other systems: Reviewed and negative
--- NOTE | 2025-11-20 13:52 | PTCARENOTE ---
R ulnar dsg D+I, site soft, Pt denies any pain at site, + ulnar and radial pulses.
== END 2025-11-20 13:55 | disposition home or self-care (01) | DRG 189 ==
LOC: IVU 14:19
PROVIDERS: Student in an Organized Health Care Education/Training Program; ADMITTING PHYSICIAN Hospitalist; CONSULT PHYSICIAN Student in an Organized Health Care Education/Training Program; EMERGENCY PHYSICIAN Emergency Medicine; FAMILY PHYSICIAN Family Medicine
PROC: B2111ZZ Fluoroscopy of Multiple Coronary Arteries using Low Osmolar Contrast (ICD-10-PCS; 2025-11-20)
PROC: 4A023N8 Measurement of Cardiac Sampling and Pressure, Bilateral, Percutaneous Approach (ICD-10-PCS; 2025-11-20)
DX: J96.00 Acute respiratory failure, unspecified whether with hypoxia or hypercapnia (principal); Z86.711 Personal history of pulmonary embolism; E78.00 Pure hypercholesterolemia, unspecified; I49.3 Ventricular premature depolarization; K21.9 Gastro-esophageal reflux disease without esophagitis; Z85.841 Personal history of malignant neoplasm of brain; Z96.653 Presence of artificial knee joint, bilateral; Z91.040 Latex allergy status; Z79.01 Long term (current) use of anticoagulants; Z79.1 Long term (current) use of non-steroidal anti-inflammatories (NSAID)
CPT/HCPCS: 71045; 71275; 80048; 83880; 84484; 85025; 93005; 93308; 93321; 93325; 99285; Q9967